=== PATIENT | female | born 1960 | race Caucasian/White ===

== ENCOUNTER 2017-12-15 17:23 | Emergency (ER) | payer OTHER ==
[~2017-12-15] VITALS: Ht 149.9 cm; Wt 68.9 kg
--- OUTSIDE RECORDS SUMMARY | 2017-12-15 17:28 | XMS REPORT | Continuity of Care Document ---
Author Author [facility] [address] [facility] Organization [facility] [address] Address Unknown Phone Unavailable Allergies There is no data. Medications There is no data. Problems Date Dx Coded Attending Type Code Diagnosis Diagnosed By 09/14/2016 DEANNE PEDROZA DO Ot R07.9 CHEST PAIN, UNSPECIFIED 09/15/2016 DEANNE PEDROZA DO Ot R07.9 CHEST PAIN, UNSPECIFIED Procedures There is no data. Results There is no data. Encounters ACCT No. Visit Date/Time Discharge Status Pt. Type Provider Facility Loc./Unit Complaint [id number] 07/30/2017 10:00:00 07/30/2017 23:59:59 CLS Preadmit JOSUE LEMUS [facility] [address] CARD AORTIC STENOSIS [id number] 09/13/2016 13:40:00 09/13/2016 23:59:59 CLS Outpatient DEANNE PEDROZA DO [facility] [address] CARD CHEST PAIN [id number] 02/18/2016 15:00:00 02/18/2016 23:59:59 CLS Preadmit DEANNE PEDROZA DO S [facility] [address] REHAB
--- NOTE | 2017-12-15 17:40 | ED Upper Extremity ---
General Stated Complaint: FELL, INJ R ARM Source: patient Exam Limitations: no limitations History of Present Illness Date Seen by Provider: Dec 15, 2017 Time Seen by Provider: 17:38 Initial Comments Patient was roller skating at her grandsons [employer] today between 1 and 2 PM when she fell. When she fell she fell onto an outstretched right arm and now has pain and swelling to the distal right forearm/wrist. Onset: this afternoon Severity: moderate Pain/Injury Location: right wrist Method of Injury: fell Modifying Factors: Worse With Movement Allergies and Home Medications Home Medications Buspirone HCl 10 Mg Tablet, (Reported) Constitutional: see HPI EENTM: see HPI Respiratory: no symptoms reported Cardiovascular: no symptoms reported Genitourinary: no symptoms reported Musculoskeletal: see HPI Skin: no symptoms reported Physical Exam Vital Signs Vital Sign - Last 12Hours 12/15/17 17:30 Temp 98.0 Pulse 71 Resp 18 B/P (MAP) 130/84 (99) Pulse Ox 94 O2 Delivery Room Air Capillary Refill : General Appearance: WD/WN, no apparent distress HEENT: PERRL/EOMI, normal ENT inspection Cardiovascular: regular rate, rhythm, no murmur Respiratory: normal breath sounds, no respiratory distress, no accessory muscle use Elbow/Forearm: normal inspection, non-tender, Right Wrist: Yes ecchymosis, Yes limited ROM, Yes pain, Yes soft tissue tenderness, Yes swelling Hand: normal inspection, non-tender, no evidence of injury, Right Neurologic/Psychiatric: alert, normal mood/affect, oriented x 3 Skin: normal color, warm/dry Comments Normal sensation in each of the fingers with capillary refill brisk at 3 seconds Progress/Results/Core Measures Results/Orders My Orders Orders - KATLYN JEREZ APRN Wrist, Right, 3 Views Or More (12/15/17 17:38) Vital Signs/I&O Vital Sign - Last 12Hours 12/15/17 17:30 Temp 98.0 Pulse 71 Resp 18 B/P (MAP) 130/84 (99) Pulse Ox 94 O2 Delivery Room Air Departure Communication (Admissions) Progress Notes She was placed by me in a sugar tong style splint using 3 inch Ortho-Glass. Impression Impression: Primary Impression: Wrist fracture, right Disposition: 01 HOME, SELF-CARE Condition: Stable Departure-Patient Inst. Decision time for Depature: 18:33 Referrals: PHYLLIS SPANGLER MD,DANDRE ARRIAGA,FERNANDA PEDROZA,DEANNE Lara DO (PCP/Family) Primary Care Physician GLEN LEVIN PAUL W DO ZAFUTA,VINI Scruggs MD Patient Instructions: Wrist Fracture (DC) Add. Discharge Instructions: 1. Leave the splint on at all times. This includes even when you shower this should be kept on, trash bag over it to keep it dry. Return to the emergency room for any cold or numb fingertips or intolerable pain in the arm. Take medication as directed. I have listed the local orthopedic surgeons for you. Call which ever one you would like to see on Sunday morning to make an appointment to be seen within the next 3 weeks. Scripts Hydrocodone/Acetaminophen (Baldwin 5-325 Tablet) 1 Each Tablet 1 EACH PO Q4H Y for PAIN-SEVERE, #30 TAB Prov: KATLYN JEREZ APRN 12/15/17 Work/School Note: Work Release Form Date Seen in the Emergency Department: Dec 15, 2017 Return to Work: Dec 16, 2017 Other Restrictions Listed Below: no use of right arm, arm in splint until relased. KATLYN JEREZ APRN Dec 15, 2017 17:40
[2017-12-15] MEDS ORDERED: BUSP10TA95 (17:48)
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
[2017-12-15] MEDS ORDERED: HYDR-757 PO (18:39)
[2017-12-15 18:45] VITALS: BP 130/84
[2017-12-15] MEDS ORDERED: RX-HYDROCODONE/APAP 5/325 MG #4 TAB PK PO PRN (18:45)
== END 2017-12-15 18:45 | disposition home or self-care (01) ==
LOC: EDUNIT# 17:23 → ER 17:25
DX: S52.571A Other intraarticular fracture of lower end of right radius, initial encounter for closed fracture (principal); V00.121A Fall from non-in-line roller-skates, initial encounter
CPT/HCPCS: 29125; 73110

== ENCOUNTER → 2018-07-18 | Outpatient (RCR) | payer OTHER ==
[~2018-07-18] MED LIST: BUSP10TA95; HYDR-4226 PO
== END | disposition home or self-care (01) ==
PROVIDERS: ATTEND Emergency Medicine
DX: S52.571A Other intraarticular fracture of lower end of right radius, initial encounter for closed fracture (principal); V00.121A Fall from non-in-line roller-skates, initial encounter

== ENCOUNTER → 2019-03-26 | Outpatient (CLI) | payer BC, OTHER ==
[~2019-03-26] MED LIST changes: +CATHETER FLUSH 10 ML SYR IV PRN; +REGADENOSON 0.4 MG/5 ML SYR (LEXISCAN) IV ONE
--- NOTE | 2019-03-26 15:26 | STRESS TEST ---
DATE OF SERVICE: 03/26/2019 LEXISCAN MYOVIEW STRESS TEST REPORT REFERRING PHYSICIAN: Dr. Juarez. Baseline heart rate is 63. Baseline blood pressure 158/72. Baseline EKG is sinus rhythm with no ischemic changes. In summary, the patient was injected with 10.67 mCi of technetium-99 Myoview and the resting images were obtained. Then, the patient received 0.4 mg of Lexiscan followed by 31.5 mCi of technetium-99 Myoview. Throughout the test, there were no EKG changes. The resting and stressed images were reviewed and compared in the short axis, horizontal long axis, and vertical long axis views. Review of the images showed breast attenuation with good radiotracer uptake. There is no significant ischemia or infarction was noted. SSS is 2, SDS 2, TID value 1.03. On the gated images, the left ventricle appeared to be normal size with normal contractility. Calculated ejection fraction 65%. CONCLUSION: 1. The patient tolerated Lexiscan well. 2. Breast attenuation with no significant ischemia or infarction on SPECT images. 3. Normal left ventricular size with normal contractility. Calculated ejection fraction 65%. Job ID: [id number] DocumentID: [id number] Dictated Date: 03/26/2019 15:09:51 Day Care Attendant Date: 03/26/2019 15:26:18 Dictated By: JULEE TUCKER MD
== END ==
LOC: CARD 12:02
PROVIDERS: ATTEND Internal Medicine Cardiovascular Disease
DX: R07.89 Other chest pain (principal); I35.1 Nonrheumatic aortic (valve) insufficiency; I35.0 Nonrheumatic aortic (valve) stenosis; E78.5 Hyperlipidemia, unspecified; J44.9 Chronic obstructive pulmonary disease, unspecified
CPT/HCPCS: 78452; 93017

== ENCOUNTER → 2019-06-05 | Outpatient (CLI) | payer BC ==
[~2019-06-05] MED LIST changes: -CATHETER FLUSH 10 ML SYR IV PRN; -REGADENOSON 0.4 MG/5 ML SYR (LEXISCAN) IV ONE
--- NOTE | 2019-06-05 13:30 | Diagnostic Imaging Report ---
INDICATION: Chest pain. EXAMINATION: PA and lateral views were obtained. FINDINGS: The heart size, mediastinal configuration, and pulmonary vascularity are within normal limits. There is no pleural effusion, pneumothorax, or pneumonia. The osseous structures are unremarkable. IMPRESSION: No acute cardiopulmonary abnormality. Dictated by: Dictated on workstation # [id number]
== END ==
LOC: RAD 12:04
PROVIDERS: ATTEND Family Medicine
DX: R07.9 Chest pain, unspecified (principal)
CPT/HCPCS: 71046

== ENCOUNTER → 2019-11-28 | Outpatient (CLI) | payer BC | LOC: CARD 09:50 | PROVIDERS: ATTEND Internal Medicine Cardiovascular Disease | DX: I08.3 Combined rheumatic disorders of mitral, aortic and tricuspid valves (principal); E78.5 Hyperlipidemia, unspecified | CPT/HCPCS: 93306 ==

== ENCOUNTER → 2020-02-27 | Outpatient (REF) ==
--- NOTE | 2020-02-27 15:40 | Diagnostic Imaging Report ---
INDICATION: Ankle pain COMPARISON: None available TECHNIQUE: 3 radiographs of the right ankle dated 02/27/2020. FINDINGS: No acute fracture or dislocation. No destructive osseous process. The talar dome is unremarkable. The ankle mortise is symmetric. Mild degenerative changes, including involving the talonavicular joint. Small posterior and plantar calcaneal enthesophytes. No suspicious radiopaque foreign body. IMPRESSION: No acute osseous abnormality with mild degenerative changes. Dictated by: Dictated on workstation # [id number]
== END ==
LOC: OCC 15:01
PROVIDERS: ATTEND Family Medicine
DX: M19.071 Primary osteoarthritis, right ankle and foot (principal)
CPT/HCPCS: 73610

== ENCOUNTER → 2021-03-09 | Outpatient (CLI) | payer BC ==
--- NOTE | 2021-03-09 13:59 | Diagnostic Imaging Report ---
EXAMINATION: CT chest without contrast (lung screening). TECHNIQUE: Multiple contiguous axial images were obtained through the chest without the use of intravenous contrast according to lung cancer screening protocol. All CT scans use one or more of the following dose optimizing techniques: automated exposure control, MA and/or KvP adjustment based on patient size and exam type or iterative reconstruction. HISTORY: 30 pack year history of smoking. COMPARISON: None available. FINDINGS: There is no edema or pneumonia. No pleural effusion. No pneumothorax. No suspicious nodules. There is no axillary or supraclavicular lymphadenopathy. There is no mediastinal lymphadenopathy. Heart size is normal. There are mild coronary artery calcifications. No pericardial effusion. Aorta is normal in caliber. Limited views of the upper abdomen are unremarkable. There are no suspicious osseous lesions. IMPRESSION: 1. No suspicious pulmonary nodules. LUNG-RADS CATEGORY: 1 MODIFIER: None. Dictated by: Dictated on workstation # [id number]
== END ==
LOC: RAD 11:50
PROVIDERS: ATTEND Family Medicine
DX: Z12.2 Encounter for screening for malignant neoplasm of respiratory organs (principal); Z87.891 Personal history of nicotine dependence
CPT/HCPCS: 71271

== ENCOUNTER → 2021-12-09 | Outpatient (CLI) | payer BC | LOC: CARD 08:30 | PROVIDERS: ATTEND Physician Assistant | DX: I08.0 Rheumatic disorders of both mitral and aortic valves (principal); I10 Essential (primary) hypertension; I25.10 Atherosclerotic heart disease of native coronary artery without angina pectoris | CPT/HCPCS: 93306 ==

== ENCOUNTER 2021-12-18 19:26 | Emergency (ER) | payer OTHER ==
[~2021-12-18] VITALS: Ht 150 cm; Wt 69.0 kg
[2021-12-18] MEDS ORDERED: ATOR40TA70 (19:42)
[2021-12-18] MEDS ORDERED: EZET10TA49 (19:42)
[2021-12-18] MEDS ORDERED: ACHD5005 (19:42)
[2021-12-18] MEDS ORDERED: KETOROLAC 60 MG/2 ML VIAL IM ONE (19:45)
[2021-12-18] MEDS ORDERED: ONDANSETRON 4 MG/5 ML ORAL SOLN (ZOFRAN) 5 ML PO ONE (19:45)
[2021-12-18] MEDS ORDERED: ORPHENADRINE 60 MG/2 ML (NORFLEX) AMP (ED ONLY) IM ONE (19:45)
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
[2021-12-18] MEDS ORDERED: ONDANSETRON 4 MG (ZOFRAN) ORAL DISSOLVE TAB ONE (19:53)
[2021-12-18] MEDS ORDERED: ONDANSETRON 4 MG (ZOFRAN) ORAL DISSOLVE TAB PO ONE (20:00)
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
[2021-12-18 20:48] VITALS: BP 104/73
== END 2021-12-18 20:50 | disposition home or self-care (01) ==
LOC: EDUNIT# 19:26 → ER 19:33
DX: S06.0X0A Concussion without loss of consciousness, initial encounter (principal); S16.1XXA Strain of muscle, fascia and tendon at neck level, initial encounter; V89.2XXA Person injured in unspecified motor-vehicle accident, traffic, initial encounter
CPT/HCPCS: 70450; 72100; 72125; 73130; 73562

== ENCOUNTER → 2022-02-09 | Outpatient (RCR) | payer OTHER ==
[~2022-02-09] MED LIST changes: +ACHD5005; +ATOR40TA70; +EZET10TA49
== END | disposition home or self-care (01) ==
PROVIDERS: ATTEND Family Medicine
DX: M54.50 Low back pain, unspecified (principal); M79.605 Pain in left leg; M79.604 Pain in right leg; V89.2XXA Person injured in unspecified motor-vehicle accident, traffic, initial encounter
CPT/HCPCS: 97163; G0283

== ENCOUNTER 2022-03-09 11:06 | Outpatient (RCR) | payer OTHER | END 2022-03-11 | disposition home or self-care (01) | PROVIDERS: ATTEND Family Medicine | DX: M54.50 Low back pain, unspecified (principal); M79.605 Pain in left leg; M79.604 Pain in right leg; V89.2XXA Person injured in unspecified motor-vehicle accident, traffic, initial encounter | CPT/HCPCS: 97110; 97140; G0283 ==

== ENCOUNTER → 2022-04-05 | Outpatient (CLI) | payer BC, OTHER ==
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
== END ==
LOC: RAD 10:15
PROVIDERS: ATTEND Family Medicine
DX: M47.816 Spondylosis without myelopathy or radiculopathy, lumbar region (principal); M47.817 Spondylosis without myelopathy or radiculopathy, lumbosacral region; M51.26 Other intervertebral disc displacement, lumbar region; M51.27 Other intervertebral disc displacement, lumbosacral region; M51.36 Other intervertebral disc degeneration, lumbar region; M51.37 Other intervertebral disc degeneration, lumbosacral region; M48.061 Spinal stenosis, lumbar region without neurogenic claudication; M48.07 Spinal stenosis, lumbosacral region; M24.28 Disorder of ligament, vertebrae
CPT/HCPCS: 72148

== ENCOUNTER → 2022-10-13 | Outpatient (CLI) | payer BC, OTHER | LOC: CARD 09:41 | PROVIDERS: ATTEND Internal Medicine Cardiovascular Disease | DX: I11.9 Hypertensive heart disease without heart failure (principal); I25.10 Atherosclerotic heart disease of native coronary artery without angina pectoris; I35.1 Nonrheumatic aortic (valve) insufficiency | CPT/HCPCS: 93306 ==

== ENCOUNTER → 2023-01-10 | Outpatient (CLI) | payer OTHER ==
[2023-01-10 10:34] VITALS: BP 130/71
== END ==
LOC: CARD 08:17
PROVIDERS: ATTEND Physician Assistant
DX: I35.0 Nonrheumatic aortic (valve) stenosis (principal); I10 Essential (primary) hypertension; I25.10 Atherosclerotic heart disease of native coronary artery without angina pectoris
CPT/HCPCS: 93351

== ENCOUNTER → 2023-03-12 | Outpatient (CLI) | payer OTHER ==
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
== END ==
LOC: RAD 08:00
PROVIDERS: ATTEND Nurse Practitioner Family
DX: Z04.2 Encounter for examination and observation following work accident (principal); M17.11 Unilateral primary osteoarthritis, right knee; M94.8X6 Other specified disorders of cartilage, lower leg; M25.461 Effusion, right knee; S83.8X1A Sprain of other specified parts of right knee, initial encounter; I51.9 Heart disease, unspecified; E03.9 Hypothyroidism, unspecified; M62.81 Muscle weakness (generalized)
CPT/HCPCS: 73721

== ENCOUNTER 2023-09-24 06:50 | Day surgery (SDC) | payer OTHER ==
[2023-09-24] VITALS (18 sets, daily range): BP systolic 104–153; BP diastolic 46–90
[~2023-09-24] VITALS: Ht 151.1 cm; Wt 66.5 kg
[2023-09-24] MEDS ORDERED: NS IV 1000 ML 1,000 ML ONE (07:04)
[2023-09-24] MEDS ORDERED: HEParin (CATH LAB) 2,000 ML IV ONE (07:04)
[2023-09-24] MEDS ORDERED: LIDOCAINE 1% INJ 20 ML VIAL ONE (07:04)
[2023-09-24] MEDS ORDERED: NS IV 1000 ML 1,000 ML IV SCH (07:15)
--- NOTE | 2023-09-24 07:34 | Diagnostic Imaging Report ---
EXAM: CHEST 1 VIEW, AP/PA ONLY INDICATION: Chest pain. COMPARISON: None. FINDINGS: Normal heart size and central pulmonary vascularity. No focal pulmonary opacity. No pleural effusion or pneumothorax. No acute osseous findings. IMPRESSION: No acute cardiopulmonary findings. Dictated by: Dictated on workstation # [id number]
[2023-09-24 07:35] LABS: HEMATOCRIT 42 % (35-52); HEMOGLOBIN 13.7 g/dL (11.5-16.0); MEAN CORPUSCULAR HEMOGLOBIN 31 pg (25-34); MEAN CORPUSCULAR HGB CONC 33 g/dL (32-36); MEAN CORPUSCULAR VOLUME 96 fL (80-99); MEAN PLATELET VOLUME 10.3 fL (9.0-12.2); PLATELET COUNT 333 10^3/uL (130-400); WHITE BLOOD COUNT 6.9 10^3/uL (4.3-11.0)
[2023-09-24] MEDS ORDERED: fentaNYL INJECTION 100 MCG/2 ML VIAL ONE (07:39)
[2023-09-24] MEDS ORDERED: VERAPAMIL 5 MG/2 ML (CALAN) VIAL IV ONE (07:39)
[2023-09-24] MEDS ORDERED: MIDAZOLAM INJ 5 MG/5 ML VIAL ONE (07:40)
[2023-09-24] MEDS ORDERED: HEParin 1000 UNIT/ML (10ML VIAL) FOR BOLUS ONE (07:40)
[2023-09-24] MEDS ORDERED: NITRO DRIP 25000 MCG/D5W 250 ML IV ONE (07:40)
--- NOTE | 2023-09-24 07:40 | Cardiac Procedure Note-CS/ASA ---
Pre-Procedure Note Pre-Op Procedure Note Date of Available H&P: Sep 11, 2023 Date H&P Reviewed: Sep 24, 2023 Time H&P Reviewed: 07:40 History & Physical: H&P Reviewed, Patient Examed, No changes noted Pre-Operative Diagnosis: CP Moderate Sedation PreProcedure Time 07:40 ASA Score 3 Airway Lungs Heart ASA score ASA 1: a normal healthy patient ASA 2: a patient with a mild systemic disease (mid diabetes, controlled hypertension, obesity ASA 3: a patient with a severe systemic disease that limits activity (angina, COPD, prior Myocardial infarction) ASA 4: a patient with an incapacitating disease that is a constant threat to life (CHF, renal failure) ASA 5: a moribund patient not expected to survive 24 hrs. (ruptured aneurysm) ASA 6: a declared brain- patient whose organs are being harvested. For emergent operations, add the letter E after the classification Mallampati Classification Grade 3 Sedation Plan Analgesia, Amnesia, Plan communicated to team members, Discussed options with patient/fam, Discussed risks with patient/fam The patient is an appropriate candidate to undergo the planned procedure, sedation, and anesthesia. The patient immediately re-assessed prior to indication. JULEE TUCKER MD Sep 24, 2023 07:40
[2023-09-24] MEDS ORDERED: ATOR40TA70 PO (07:41)
[2023-09-24] MEDS ORDERED: GABA300C PO (07:41)
[2023-09-24] MEDS ORDERED: VIT1CAPS PO (07:41)
[2023-09-24] MEDS ORDERED: CETI-458 PO (07:41)
[2023-09-24] MEDS ORDERED: LEVO150T6 PO (07:41)
[2023-09-24] MEDS ORDERED: FLUO40CA12 PO (07:41)
[2023-09-24] MEDS ORDERED: BUSP10TA95 PO (07:41)
[2023-09-24] MEDS ORDERED: BLAC40CA PO (07:41)
[2023-09-24] MEDS ORDERED: FLUO20CA42 PO (07:41)
[2023-09-24] MEDS ORDERED: HYDR50TA76 PO (07:41)
[2023-09-24] MEDS ORDERED: DICL75TA2 PO (07:41)
[2023-09-24] MEDS ORDERED: ASPI-1238 PO (07:41)
[2023-09-24 07:50] LABS: INR 0.8 (0.8-1.4); PROTHROMBIN TIME PATIENT 11.8 SEC (12.2-14.7)
[2023-09-24 07:57] LABS: ALBUMIN 3.9 GM/DL (3.2-4.5); BILIRUBIN,TOTAL 0.2 MG/DL (0.1-1.0); CALCIUM 8.7 MG/DL (8.5-10.1); CREATININE SERUM 0.69 MG/DL (0.60-1.30); POTASSIUM 3.9 MMOL/L (3.6-5.0); TOTAL PROTEIN 6.8 GM/DL (6.4-8.2)
[2023-09-24] MEDS ORDERED: EPTIFIBATIDE BOLUS 20 ML IV ONE (08:52)
[2023-09-24] MEDS ORDERED: EPTIFIBATIDE DRIP 100 ML IV ONE (08:52)
[2023-09-24] MEDS ORDERED: ASPIRIN 325 MG TABLET ONE (09:08)
[2023-09-24] MEDS ORDERED: PRASUGREL 10 MG TABLET ONE (09:09)
--- NOTE | 2023-09-24 09:20 | Cardiac Cath Report ---
Cardiac Cath Report Physician (s)/Extruding Press Adjuster (s) Physician JULEE TUCKER MD Pre-Procedure Diagnosis Pre-Procedure Diagnosis: CP Post-Procedure Note Procedure Start Date: Sep 24, 2023 Name of Procedure: Coronary angiogram Stenting to the right coronary artery Findings/Procedure Note PROCEDURE NOTE: 63-year-old lady with history of aortic valve stenosis, has been having increasing chest pain, recommended cardiac catheterization to evaluate her coronary anatomy in preparation for possible valve replacement. After explaining the procedure to the patient, all pros and cons were explained, all questions were answered. The patient signed the consent and then she was placed in the cardiac catheterization laboratory. Groin was prepped in SL fashion local anesthesia was used. Sheath placed in the right radial artery, [place] catheter was advanced, I was unable to cross the aortic valve, engage the right and left coronary system and angiogram was done. Patient has 99% stenosis in the proximal right coronary artery AL-1 guide was used and run-through wire was advanced and parked distally in the right coronary artery Predilatation with 2.5 x 20 mm balloon then deployment of Orsiro 2.75 x 22 stent deployed without difficulties. Angiogram post deployment showed dissection extending from the ostium of the right coronary artery to the mid portion Second Orsiro stent 2.5 x 35 deployed in the mid portion and at the ostium of the right coronary artery Orsiro stent 2.75 x 22 mm deployed. Angiogram showed significant improvement. I attempted to advance noncompliant balloon without success and lost the position of my guide and the wire position. I was unable to engage again with the AL-1. I exchanged the catheter and used Didier right guide, I was able to advance the wire through the Didier right with nonselective engagement then I advanced a noncompliant trek 3 x 25 balloon inflated at the ostium proximal and mid and the overlapping area. Angiogram showed excellent results. There was small dissection on the roof of the right coronary artery but I was satisfied with the deployment of the stents. Angiogram showed no complication Patient was given double bolus of Integrilin. At the end of the procedure the sheath was removed. Vascular band was used FINDINGS: Hemodynamics LV did not cross the aortic valve Aorta 115/62 mean of 79 ANATOMY: Left Main is free of obstructive disease Left Anterior Descending is tortuous artery with no obstructive disease Left Circumflex is nondominant artery with no obstructive disease Right Coronary Artery is dominant artery with 99% proximal stenosis, complex intervention with deployment of 3 overlapping stents Orsiro 2.75 x 22 followed by 2.75 x 22 then 2.5 x 36 mm stent with no residual stenosis. There were collaterals filling the distal right from the left system LV Gram was unable to cross the aortic valve PERCUTANEOUS INTERVENTION: Pre stenosis 99% Post Stenosis 0% Pre LOU flow 2 Post LOU flow 3 Dominance right coronary artery CONCLUSION: 99% stenosis in the proximal right coronary artery complicated procedure with dissection of the proximal and mid right coronary artery with deployment of 3 overlapping stents Orsiro 2.75 x 22, 2.75 x 22 and 2.5 x 36 expanded to 3 mm with no residual stenosis Otherwise no obstructive disease Severe aortic valve stenosis, could not cross the aortic valve DISCUSSION AND RECOMMENDATION: Patient was loaded with aspirin and Effient. We will continue maximizing medical therapy Anesthesia Type: Conscious Sedation Estimated blood loss (mL): 25 ml Contrast Amount: 140 ml Total Radiation Dose: 1519 mGy Post-Procedure Diagnosis Post-operative diagnosis: Chest pain Coronary artery disease Aortic stenosis Hyperlipidemia JULEE TUCKER MD Sep 24, 2023 09:19
[2023-09-24] MEDS: NS IV 1000 ML 1,000 ML IV SCH ×2 (10:01→20:19)
[2023-09-24] MEDS ORDERED: RT-ALBUTEROL SULF 2.5 MG/3 ML PRE-MIX VIAL INH PRN (14:15)
[2023-09-24] MEDS: GABAPENTIN 300 MG CAPSULE PO SCH (20:17)
[2023-09-24] MEDS ORDERED: hydrOXYzine 25 MG CAPSULE PO SCH (21:00)
[2023-09-25] VITALS: BP 126/69
[2023-09-25 01:00] VITALS: BP 113/62
[2023-09-25 02:00] VITALS: BP 140/66
[2023-09-25 03:00] VITALS: BP 128/63
[2023-09-25 04:00] VITALS: BP 137/70
[2023-09-25 05:16] LABS: HEMATOCRIT 37 % (35-52); HEMOGLOBIN 11.9 g/dL (11.5-16.0); MEAN CORPUSCULAR HEMOGLOBIN 31 pg (25-34); MEAN CORPUSCULAR HGB CONC 33 g/dL (32-36); MEAN CORPUSCULAR VOLUME 96 fL (80-99); MEAN PLATELET VOLUME 10.6 fL (9.0-12.2); PLATELET COUNT 285 10^3/uL (130-400); WHITE BLOOD COUNT 6.8 10^3/uL (4.3-11.0)
[2023-09-25 05:24] LABS: POTASSIUM 3.9 MMOL/L (3.6-5.0)
[2023-09-25 05:25] LABS: CALCIUM 8.1 MG/DL (8.5-10.1)
[2023-09-25 05:30] LABS: CREATININE SERUM 0.67 MG/DL (0.60-1.30)
[2023-09-25] MEDS: NS IV 1000 ML 1,000 ML IV SCH (05:55)
[2023-09-25] MEDS ORDERED: LEVOTHYROXINE 150 MCG TABLET PO SCH (06:30)
[2023-09-25] MEDS ORDERED: PRAS10TA10 PO (06:44)
[2023-09-25] MEDS ORDERED: ATOR80TA76 PO (06:44)
[2023-09-25 08:00] VITALS: BP 140/66
[2023-09-25] MEDS: GABAPENTIN 300 MG CAPSULE PO SCH (08:33)
--- NOTE | 2023-09-25 08:36 | Discharge Inst-Post CATH ---
Discharge Inst-CATH/EP Problems Reviewed?: Yes Post Cardiac Cath/EP D/C Inst Follow Up/Plan Appointment with Dr. Dumont's office in 2 to 4 weeks <b>CARDIAC CATH/EP PROCEDURE DISCHARGE INSTRUCTIONS</b> ACTIVITY * Go Home directly and rest. * Limit activity of the leg (or wrist if it was used) for 7 days including aer obics, swimming, jogging, bicycling, etc. * Restrict stair-climbing for 7 days if possible, if not, climb up with your non-cath leg, then bring together on the same step. * Avoid lifting, pushing, pulling or excessive movement of the affected extremi ty for 7 days. * Customary sexual activity may be resumed after 2 days-use caution not to use a position that strains or causes pain to the affected extremity. * No driving for 24 hours. * NO SMOKING. * Avoid straining for bowel movements for 7 days. * Gentle walking on level ground is allowed. * Returning to work will depend on the type of procedure and the results. Your doctor will discuss this with you. CALL YOUR DOCTOR FOR ANY OF THE FOLLOWING: *If bleeding from the puncture site occurs- Apply gentle pressure to site with clean cloth and call your doctor or EMS. * If a knot or lump forms under the skin, increases in size, or causes pain. * If bruising appears to be worsening or moving further down your leg instead of disappearing. * Temperature above 101 F. CARE OF YOUR GROIN INCISION; * Bruising or purple discoloration of the skin near the puncture site is common. * You may shower only, no bathtub bathing for 5 days. Be careful to avoid slipping as your leg may feel stiff. * If a closure device was used on your femoral artery, please see the attached guide regarding care of the device and your leg. * Leave dressing on FOR 24 hours. CARE OF YOUR WRIST INCISION; * Bruising or purple discoloration of the skin near the puncture site is common. * You may shower. * DO NOT submerge wrist. * Leave dressing on FOR 24 hours. JULEE DUMONT MD Sep 25, 2023 08:35
--- NOTE | 2023-09-25 08:37 | Cardiology Progress Note ---
Subjective Date Seen by Provider: Sep 25, 2023 Time Seen by Provider: 08:36 Subjective/Events-last exam Patient was seen at bedside, laying down comfortably, feeling better. No new complain Objective-Cardiology Exam Last Set of Vital Signs Vital Signs 09/25/23 08:00 Temp 36.8 Pulse 65 Resp 20 B/P (MAP) 140/66 (90) Pulse Ox 97 O2 Delivery Room Air I&O Intake and Output 09/24/23 23:59 Intake Total 400 ml Balance 400 ml Intake Oral 400 ml # Voids 2 General: Alert, Oriented X3, Cooperative HEENT: Atraumatic, PERRLA Neck: Supple, No JVD, No Thyromegaly Lungs: Clear to Auscultation, Normal Air Movement Heart: Regular Rate, Normal S1, Normal S2, Other (Aortic stenosis) Abdomen: Normal Bowel Sounds, Soft, No Tenderness, No Hepatosplenomegaly, No Masses Extremities: No Clubbing, No Cyanosis, No Edema, Normal Pulses, No Tenderness/Swelling Skin: No Rashes, No Breakdown, No Significant Lesion Neuro: Normal Gait, Normal Speech, Strength at 5/5 X4 Ext, Normal Tone, Se nsation Intact Psych/Mental Status: Mental Status NL, Mood NL Results Lab Laboratory Tests 09/25/23 04:50 A/P-Cardiology Admission Diagnosis Coronary artery disease Aortic stenosis Hypertension Hyperlipidemia Assessment/Plan Coronary artery disease, complex intervention with 3 stents to the right coronary artery Educated about starting aspirin and Effient, importance of taking the medication for a full year at least. Continue to monitor Severe aortic stenosis, probably is going to need aortic valve replacement Hypertension, continue current medication monitor blood pressure Hyperlipidemia, monitor lipids Planning for discharge and follow-up as an outpatient JULEE TUCKER MD Sep 25, 2023 08:37
[2023-09-25] MEDS ORDERED: ASPIRIN enteric coated 81MG TABLET PO SCH ×2 (09:00)
[2023-09-25] MEDS ORDERED: PRASUGREL 10 MG TABLET PO SCH (09:00)
[2023-09-25] MEDS ORDERED: FLUoxetine 20 MG CAPSULE PO SCH ×2 (09:00)
== END 2023-09-25 09:30 | disposition home or self-care (01) ==
LOC: CATH 06:50 → CSD 09:47 → CATH 09-25 09:30
PROVIDERS: ATTEND Internal Medicine Cardiovascular Disease
DX: I25.10 Atherosclerotic heart disease of native coronary artery without angina pectoris (principal); E78.2 Mixed hyperlipidemia; I10 Essential (primary) hypertension; E03.9 Hypothyroidism, unspecified; J44.9 Chronic obstructive pulmonary disease, unspecified; I65.29 Occlusion and stenosis of unspecified carotid artery; I08.3 Combined rheumatic disorders of mitral, aortic and tricuspid valves; F17.210 Nicotine dependence, cigarettes, uncomplicated; Z79.899 Other long term (current) drug therapy
CPT/HCPCS: 71045; 80048; 80053; 80061; 85027 ×2; 85347; 85610; 85730; 87081; 93005; 93454; C1725 ×2; C1769 ×2; C1874 ×3; C1887 ×2; C1894; C8929; C9600; 36415; 93306